=== PATIENT | female | born 1970 | race Caucasian/White ===

== ENCOUNTER 2017-08-30 22:26 | Emergency (ER) | payer MEDICAID ==
[~2017-08-30] VITALS: Ht 152.4 cm; Wt 71.9 kg
[~2017-08-30 22:26] MED LIST: ALBU0.0912 INH; FLUT1DSK2 IH; MONT10TA35 PO; SYN.05 PO
[2017-08-30 22:38] VITALS: BP 134/88
--- NOTE | 2017-08-30 22:41 | NUR ---
TO LOBBY, A/W BED, SAE, VSBritt, ERMHumera NOTED
--- NOTE | 2017-08-30 22:45 | NUR ---
ASSUMED CARE OF PT AT THIS TIME. C/O LOWER ABDOMINAL PAIN AND VAGINAL BLEEDING X 1 DAY. SKIN IS PINK/WARM/DRY; AAOX4 WITH EVEN AND STEADY GAIT; PATIENT STATES PAIN OF 10/10; VSS; PATIENT POSITIONED FOR COMFORT; HOB ELEVATED; BEDRAILS UP X2; BED DOWN. ER MD MADE AWARE OF PT STATUS. WILL CONTINUE TO MONITOR.
[2017-08-30 23:27] LABS: APPEARANCE,URINE TURBID (CLEAR); BILIRUBIN,URINE 1+ (NEGATIVE); BLOOD, URINE 3+ (NEGATIVE); COLOR,URINE RED (YELLOW); LEUKOCYTE ESTERASE ,URINE 2+ (NEGATIVE); NITRITE, URINE POSITIVE (NEGATIVE); PH,URINE 8.5 (5.0-9.0); UGLUCOSE NEGATIVE (NEGATIVE)
[2017-08-30 23:45] LABS: RBC,URINE TOO NUMEROUS TO COUN /HPF (0-5); WBC,URINE TOO MANY TO COUNT /HPF (0-5)
[2017-08-30] MEDS ORDERED: cefTRIAXone 1,000 MG in LIDOCAINE MPF 1% - **ER/OR** 2.1 ML IM ONE (23:50)
[2017-08-30] MEDS ORDERED: cefTRIAXone 1,000 MG VIAL ONE (23:52)
[2017-08-30] MEDS ORDERED: LIDOCAINE 2% 1000 MG/50 ML VIAL INJ ONE (23:55)
[2017-08-31 00:15] VITALS: BP 132/84
== END 2017-08-31 00:15 | disposition home or self-care (01) ==
LOC: MED 22:26
DX: N39.0 Urinary tract infection, site not specified (principal); J45.909 Unspecified asthma, uncomplicated; E07.9 Disorder of thyroid, unspecified; Z79.899 Other long term (current) drug therapy; Z91.048 Other nonmedicinal substance allergy status
CPT/HCPCS: 81001; 87086; 87186; 96372; 99284; J0696; J2001

== ENCOUNTER 2019-05-01 23:29 | Emergency (ER) | payer MEDICAID ==
[~2019-05-01] VITALS: Ht 154.9 cm; Wt 72.6 kg
[2019-05-01 23:30] VITALS: BP 122/82
--- NOTE | 2019-05-01 23:33 | NUR ---
TO LOBBY A/W BED AMBULATORY
--- NOTE | 2019-05-02 01:34 | NUR ---
PT TAKEN TO BED 9
[2019-05-02 02:00] LABS: BASOPHILS % (AUTO) 0.2 % (0.0-2.0); EOSINOPHILS # (AUTO) 0.3 K/uL (0-0.4); EOSINOPHILS % (AUTO) 3.2 % (0.0-4.0); HEMATOCRIT 44.6 % (36-48); HEMOGLOBIN 14.8 g/dL (12.0-16.0); LYMPHOCYTES # (AUTO) 1.5 K/uL (2.5-16.5); LYMPHOCYTES % (AUTO) 14.7 % (20.5-51.1); MEAN CORPUSCULAR HEMOGLOBIN 30 pg (27-31); MEAN CORPUSCULAR HGB CONC 33 g/dL (33-37); MONOCYTES # (AUTO) 0.7 K/uL (0.8-1.0); MONOCYTES % (AUTO) 6.6 % (1.7-9.3); NEUTROPHILS # (AUTO) 7.8 K/uL (1.8-7.7); NEUTROPHILS % (AUTO) 75.3 % (42.2-75.2); PLATELET COUNT (AUTO) 308 K/uL (140-450); RED BLOOD CELL COUNT(AUTO) 4.95 MIL/uL (4.20-5.40); RED CELL DISTRIBUTION WIDTH 13.3 % (11.6-13.7); WHITE BLOOD COUNT (AUTO) 10.4 K/uL (4.8-10.8)
[2019-05-02 02:09] LABS: APPEARANCE,URINE CLOUDY (CLEAR); BILIRUBIN,URINE 2+ (NEGATIVE); BLOOD, URINE 3+ (NEGATIVE); COLOR,URINE RED (YELLOW); LEUKOCYTE ESTERASE ,URINE 2+ (NEGATIVE); NITRITE, URINE POSITIVE (NEGATIVE); UGLUCOSE TRACE (NEGATIVE)
[2019-05-02 02:15] LABS: ALBUMIN 4.1 g/dL (3.4-5.0); ANION GAP 9.7 (8-16); CARBON DIOXIDE 30.9 mmol/L (21-32); CREATININE 0.6 mg/dL (0.6-1.3); POTASSIUM 3.6 mmol/L (3.5-5.1); TOTAL BILIRUBIN 0.4 mg/dL (0.0-1.0)
--- NOTE | 2019-05-02 02:24 | NUR ---
PT BIB C/O HEMATURIA, BURNING SUPRAPUBIC PAIN RADITING TO BL FLANKS, AND SHAP PAIN WITH URINATION. -N/V, + CHILLS. PMH:ASTHMA, THYROID.
[2019-05-02 03:02] LABS: RBC,URINE TOO NUMEROUS TO COUN /HPF (0-5)
[2019-05-02 03:03] LABS: WBC,URINE TOO MANY TO COUNT /HPF (0-5)
[2019-05-02] MEDS ORDERED: IBUPROFEN 600 MG TAB PO ONE (03:30)
[2019-05-02] MEDS ORDERED: cefTRIAXone 1,000 MG VIAL ONE (03:35)
[2019-05-02 04:27] VITALS: BP 100/60
--- NOTE | 2019-05-02 04:27 | NUR ---
Patient discharged with v/s stable. Written and verbal after care instructions given and explained. Patient alert, oriented and verbalized understanding of instructions. Ambulatory with steady gait. All questions addressed prior to discharge. ID band removed. Patient advised to follow up with PMD. Rx of KEFLEX, IBUPROFEN, AND PHENAZOPYRIDINE given. Patient educated on indication of medication including possible reaction and side effects. Opportunity to ask questions provided and answered.
== END 2019-05-02 04:27 | disposition home or self-care (01) ==
LOC: MED 23:29
DX: N30.01 Acute cystitis with hematuria (principal); N39.0 Urinary tract infection, site not specified; J45.909 Unspecified asthma, uncomplicated; E11.9 Type 2 diabetes mellitus without complications; Z79.899 Other long term (current) drug therapy
CPT/HCPCS: 36415; 80053; 81001; 81025; 82150; 83690; 85025; 87086; 96365; 99284; J0696; J7060